=== PATIENT | female | born 1940 | race Native Hawaiian/Other Pacific Islander ===

== ENCOUNTER 2019-01-30 13:10 | Outpatient (CLI) | payer OTHER | END 2019-01-30 22:49 | disposition home or self-care (01) | LOC: RAD 13:10 | DX: Z51.89 Encounter for other specified aftercare (principal); M62.81 Muscle weakness (generalized); I63.9 Cerebral infarction, unspecified; I10 Essential (primary) hypertension; G20 Parkinson's disease; R26.89 Other abnormalities of gait and mobility; Z74.1 Need for assistance with personal care; I69.391 Dysphagia following cerebral infarction; J45.909 Unspecified asthma, uncomplicated; F48.9 Nonpsychotic mental disorder, unspecified; Z86.11 Personal history of tuberculosis ==